=== PATIENT | male | born 1960 | race African-American/Black ===

== ENCOUNTER → 2020-05-30 | Outpatient (CLI) | payer OTHER ==
[~2020-05-30] MED LIST: ATORVASTATIN CA20 MG PO; FISH OIL 1,0001 EAC9 PO; HYDROCHLOROTH12.5 M2 PO; MULTI VITAMIN1 EACH PO; VITAMIN D325 MC3 PO
== END ==
LOC: LAB 09:52
PROVIDERS: ATTEND Orthopaedic Surgery Sports Medicine
DX: Z01.812 Encounter for preprocedural laboratory examination (principal); Z20.828 Contact with and (suspected) exposure to other viral communicable diseases

== ENCOUNTER 2020-06-03 06:07 | Inpatient (IN) | payer OTHER ==
[2020-05-23 09:59] LABS: HEMOGLOBIN 13.6 gm/dL (14.0-18.0); MCH 32.3 pg (26.0-34.0); MCHC 33.1 g/dL (28.0-37.0); MCV 97.6 fL (80.0-100.0); RBC 4.2 mil/uL (4.50-6.00); WBC 4.7 thou/uL (4.0-11.0)
[2020-05-23 10:08] LABS: URINE BILIRUBIN NEGATIVE (Negative); URINE BLOOD NEGATIVE (Negative); URINE CLARITY CLEAR; URINE COLOR YELLOW; URINE GLUCOSE-RANDOM* NEGATIVE (Negative); URINE KETONES NEGATIVE (Negative); URINE LEUKOCYTES-REFLEX NEGATIVE (Negative); URINE NITRITE-REFLEX NEGATIVE (Negative); URINE PROTEIN (DIPSTICK) NEGATIVE (Negative); URINE SPECIFIC GRAVITY 1.025 (1.005-1.035); URINE UROBILINOGEN 0.2 E.U./dl (0.2-1.0)
--- NOTE | 2020-05-23 10:13 | EKG ---
[facility] [place] [address] ELECTROCARDIOGRAM REPORT Name: LIZANDRO HAMEED Room #: PRE [facility]..#: [id number] Admission: Attend Phys: Idris Aguirre MD Discharge: Date of : 58 Report #: [id number] THIS REPORT FOR: cc: JANES CANTU Physician not on staff Meet Diaz MD 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 05/23/20 1013 0948 7 Meet Diaz MD, FACC /EPI
[2020-05-23 10:14] LABS: PROTIME 10.7 Seconds (9.3-11.4)
[2020-05-23 10:18] LABS: ALBUMIN 4.2 g/dL (3.4-5.0); CALCIUM 8.9 mg/dL (8.5-10.1); CREATININE 0.9 mg/dL (0.7-1.3)
[~2020-06-03] VITALS: Ht 182.9 cm; Wt 115.7 kg
[2020-06-03 07:29] VITALS: BP 123/84
[2020-06-03 13:25] VITALS: BP 138/90
[2020-06-03 13:55] VITALS: BP 145/92
[2020-06-03 14:30] VITALS: BP 150/89
[2020-06-03 19:07] VITALS: BP 117/80
--- NOTE | 2020-06-03 20:30 | NUR ---
PATIENT ADMITTED FROM OR WITH RIGHT KNEE REPLACEMENT, BROIDE DRESSING, SCD'S, JOSUÉ NÚÑEZ, POLAR CARE IN PLACE. PATIENT DENIES PAIN DURING ADMISSION. RIGHT WRIST IV IN PLACE. NO C/O NAUSEA, REGULAR DIET ORDERED. AT BEDSIDE. REPORT GIVEN TO LUZMA/RN.
--- NOTE | 2020-06-04 05:26 | NUR ---
ASSESSED AT START OF SHIFT. PT A&OX4 RATES PAIN OF 2/10. MANAGED BY PO OXYCODONE. IV INTACT AND FLUIDS INFUSING. BRODIE DRESSING POLAR PACK AND SCD'S ON BLE. URINAL AT BEDSIDE AND PT VOIDS APPROPRIATELY. STATED NUMBNESS IN RT LEG. FALL PREC IN PLACE AND CALL LIGHT AT REACH WILL CONT TO MONITOR.
[2020-06-04 05:59] VITALS: BP 124/85
[2020-06-04 05:59] LABS: HEMOGLOBIN 10.5 gm/dL (14.0-18.0); MCV 97.1 fL (80.0-100.0); RBC 3.19 mil/uL (4.50-6.00); RDW 13.1 % (10.5-14.5); WBC 8.5 thou/uL (4.0-11.0)
--- NOTE | 2020-06-04 06:36 | O ---
[address] [address] OPERATIVE REPORT Name: LIZANDRO HAMEED Room #: 446-P ADM IN M.R.#: [id number] Admission: 06/03/20 Attend Phys: Idris Aguirre MD Discharge: Date of : 58 Report #: [id number] THIS REPORT FOR: cc: RODRIGUEZ - Family physician unknown FAM - Family physician unknown Idris Aguirre MD ~ CC: RODRIGUEZ unknown Idris Aguirre DATE OF SERVICE: 06/03/2020 SERVICE: Orthopedics. FACILITY: [facility]. SURGEON: Idris Aguirre MD SAFE AND VAULT INSTALLER: Tamanna Terry. INDICATION FOR SAFE AND VAULT INSTALLER: Assistance with the exposure, retraction during the procedure as well as the closure. PREOPERATIVE DIAGNOSES: 1. Right knee pain. 2. Right knee valgus type osteoarthritis. POSTOPERATIVE DIAGNOSES: 1. Right knee pain. 2. Right knee valgus type osteoarthritis. PROCEDURES: 1. Right total knee arthroplasty. 2. Computer navigated robotic-assisted arthroplasty. COMPLICATIONS: None. DRAINS: None. SPECIMENS: None. ANESTHESIA: General with regional. FINDINGS: 1. [employer] Oxinium size 7 Journey II femoral component with size 7 tibial baseplate, a size 12 constrained liner and 35 mm patellar button. 2. Correction of the preoperative 7-degree valgus, 5-degree hyperextension [address] [address] OPERATIVE REPORT Name: LIZANDRO HAMEED Room #: 446-P [facility] [place]#: [id number] Admission: 06/03/20 Attend Phys: Idris Aguirre MD Discharge: Date of : 58 Report #: [id number] deformity that this knee had. HISTORY: The patient is a gentleman with a history of persistent progressive right knee arthritis. He was [id number] arthritis on x-rays with osteophytes, sclerosis and subchondral cyst. He had failed conservative measures including rest, activity modifications, physical therapy, oral medicines and injections. He had activity of daily life-limiting symptoms and wished to move forward with definitive surgical treatment. Risks, benefits, alternatives, and indication of surgery discussed with him in detail. Risks include but not limited to pain, bleeding, infection, injury to nerves or blood vessels, persistent pain despite surgical intervention, failure of the reconstruction as well as need for further surgery including stiffness as well as complications related to anesthesia such as stroke, heart attack, pulmonary complications, thromboembolic disease and . Despite these risks, he wished to proceed. PROCEDURE IN DETAIL: After right lower extremity was correctly identified in preoperative holding area as the operative extremity, the patient underwent regional nerve block. He was then taken to the operating room where general anesthesia was induced without complications and was padded appropriately. Prophylactic antibiotics were administered at appropriate time. Tourniquet was applied to right leg. He had an obvious hyperextension deformity with a valgus deformity as well. The right leg was prepped and draped in standard sterile fashion. Timeout procedure performed. Esmarch was used. Tourniquet inflated to 300 mmHg and a standard anterior approach with medial parapatellar arthrotomy was performed. There was noted to be severe arthritis, tricompartmentally worst laterally. He has significant valgus deformity, we consider this in the pre-resection templating. The checkpoints were placed as were the femoral and tibial half pins in standard fashion and then the [employer] robotic system was used to obtain the baseline data. As stated, we considered the deformity in the attempt at correction of the flexion gap as well as the osseous deformity. We set the initial parameters and then made the cut with the robotic assistance and then used a size 7 block for the femoral cuts. Excess osteophytes had been removed. The cruciates were removed. The menisci were removed and limited medial soft tissue release was performed just to obtain access to the osteophytes without detaching the medial constraints. After the femoral cut was completed, the tibial cut was made in the standard fashion and then assessed gap balancing. He was still significantly tight laterally, so I did a limited capsular release laterally and partial release of the popliteus, which allowed for better balancing of the lateral side, both in flexion and extension. The initial periarticular injection cocktail was then injected in the posterior soft tissues and then we proceeded with preparation of the tibia and femur with the spinner box and the tibial punch. We used the shopkick balancing system with both the trial and the final implant before selecting the final poly insert. Because of the valgus deformity and hyperextension, he had a mixed laxity picture in terms [address] [address] OPERATIVE REPORT Name: LIZANDRO HAMEED Room #: 446-P [facility] IN M.R.#: [id number] Admission: 06/03/20 Attend Phys: Idris Aguirre MD Discharge: Date of : 58 Report #: [id number] of increased laxity medially, but has significant tightness posterolaterally even with resection of the posterior osteophytes and soft tissue releases. Ultimately, the 12 constrained fit well and addressed his initial gap asymmetry. The trials were removed. The drill pin was used to create small drill holes within the sclerotic bone of the lateral side of the knee. The knee was copiously irrigated. Again, the final capsular injection was performed and then the final implants were cemented into place. The knee was held in extension and excess cement was removed while the cement cured, the tourniquet was let down. Hemostasis was achieved. We again used the Navio system to assess balancing with the trial poly and ultimately selected a 12 constrained which was then snapped into place. The knee was well balanced and stable at this point. The wound was copiously irrigated. The arthrotomy was closed over a gram of vancomycin powder with #2 Vicryl suture. The skin layer was then closed with 2-0 Vicryl followed by subcuticular running Monocryl suture. Dermabond and then a sterile dressing with a compression stocking and a PolarCare were applied to the right lower extremity. The patient was awakened from anesthesia and taken to recovery room in stable condition. No complications. All counts were reported as correct. <ELECTRONICALLY SIGNED> By: Idris Aguirre MD 06/04/20 0636 1353 1430 Idris Aguirre MD /nt
[2020-06-04 07:00] VITALS: BP 119/81
--- NOTE | 2020-06-04 09:18 | NUR ---
ASSESSMENT: CM REVIEWED CHART AND SPOKE WITH PT. PT IS ALERT AND ORIENTED X4. PT IS S/P RIGHT TKA. PT REPORTS LIVING IN A HOUSE WITH HIS . PT REPORTS ABOUT 5 STEPS WITH HANDRAILS INTO THE HOME. PT REPORTS ONCE INSIDE HE HAS ABOUT 16 STEPS WITH HANDRAILS TO HIS BEDROOM. PT REPORTS NORMALLY BEING FULLY INDEPENDENT WITH ADLS AND AMBULATION. PT DENIES HAVING ANY DME. CM DISCUSSED PT WILL LIKELY NEED A WALKER AT DISCHARGE. PT REPORTS HE HAS NO PREFERENCE OF DME COMPANY. CM REACHED OUT TO PROVIDER [employer] TO CHECK PATIENTS INSURANCE AND [employer] VERIFIED THAT HE CAN BE ISSUED A WALKER. CM NOTIFIED PHYSICAL THERAPY THAT PT CAN BE ISSUED WALKER THEY WILL BE ABLE TO GIVE PT ONE FROM THE OFFICE. PT REPORTS HAVING OUTPATIENT THERAPY ALREADY ARRANGED AT [facility] (P)[phone] FAX:[phone]. CM WILL CONTINUE TO FOLLOW TO ASSIST NEEDED. PT WILL DISCHARGE ONCE CLEARED BY PT/OT.
--- NOTE | 2020-06-04 11:03 | NUR ---
PT CARE ASSUMED AT 0700. A&Ox4. BRODIE DRESSING DRY AND INTACT. EDUCATED ON BRODIE AND POLAR PACK. SCD'S/TEDS IN PLACE. VITALS STABLE. PT STILL STRUGGLING WITH PAIN MANAGMENT. EDUCATED ON CALLING OUT FOR MEDICATION SOONER. PT UNDERSTANDS. IV PATENT WITH NO REDNESS OR EDEMA, SALINE LOCKED. 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 FALL PROTOCOL IN PLACE. CALL LIGHT IN REACH. PT POSSIBLY DISCHARGING TOMORROW IF PAIN UNDER BETTER CONTROL. PT/OT ON BOARD. USES URINAL. CARE HANDED OVER AT 1100 TO LYNDSEY DE JESUS.
[2020-06-04 15:01] VITALS: BP 133/84
--- NOTE | 2020-06-04 17:17 | NUR ---
ASSUMED PT CARE DURING DAY SHIFT FROM [facility]. PT A&OX4, VSS. COMPLAINED OF PAIN MANAGED WITH MEDS PER EMAR. PT UP WITH PHYSICAL THERAPY, COOPERATIVE WITH STAFF, AND CALLS APPROPRIATELY WHEN NEEDED. NO ISSUES NOTED WITH BRODIE DRESSING OR POLAR PACK.
[2020-06-04 19:12] VITALS: BP 152/82
--- NOTE | 2020-06-05 01:14 | NUR ---
ASSUMED PT CARE AT SHIFT CHANGE. PT IS A&OX4. IV WAS INFILTRATED SO I REMOVED IT. PT STATES THAT THE IV WAS LEAKING ALL DAY. BRODIE DRESSING AND POLAR PACK IS IN PLACE. SCD'S AND JOSUÉ HOSE ARE IN PLACE ON BLE. PT CALLS OUT TO NOTIFY STAFF OF NEED OF PAIN MEDS. PAIN MANAGED BY PAIN MEDICATION. PT USES URINAL AND HAS NOT HAD A BM TODAY YET. HOURLY ROUNDS COMPLETED. WILL CONTINUE TO MONITOR.
[2020-06-05 04:44] VITALS: BP 151/94
[2020-06-05 05:53] LABS: HEMATOCRIT 30.1 % (42.0-52.0); HEMOGLOBIN 10.1 gm/dL (14.0-18.0); MCH 32.6 pg (26.0-34.0); MCHC 33.4 g/dL (28.0-37.0); MCV 97.6 fL (80.0-100.0); RBC 3.09 mil/uL (4.50-6.00); RDW 12.7 % (10.5-14.5); WBC 7.4 thou/uL (4.0-11.0)
--- NOTE | 2020-06-05 06:38 | NUR ---
I AGREE ON THE DOCUMENTATION DONE BY Damion CHANG LPN ON THIS PATIENT.
[2020-06-05 07:42] VITALS: BP 156/96
[2020-06-05] MEDS ORDERED: PERCOCET 10-321 EACH PO (10:43)
[2020-06-05 12:36] VITALS: BP 156/96
--- NOTE | 2020-06-05 13:06 | NUR ---
ASSUMED CARE AT 0700. PATIENT IS ALERT AND ORIENTED X4. PATIENT HAS LEFT FACIAL PALSEY /DROOP. THIS IS NOT RELATED TO A STROKE. LUNGS ARE CLEAR. ABD IS SOFT WITH BSX4. PATIENT IS VOIDING JAYME COLORED URINE. UP WITH WALKER TO AMBULATE WITH P.T. OK TO BE D/C'D TO HOME. PLAN D/C AFTER FILLS SCRIPS. PATIENT HAS POLAR ICE TO HIS RIGHT KNEE. PICCO DRESSING IS INTACT. FALL AND SAFETY PROTOCOLS IN PLACE. C/O PAIN IN HIS RIGHT KNEE. MEDICATED WITH PRN PAIN MEDS. CONTINUES TO PROGRESS TOWARDS D/C GOALS.
--- NOTE | 2020-06-05 13:34 | NUR ---
PATIENT GIVEN D/C INSTRUCTIONS AND SCRIPTS GIVEN TO . PATIENT LEFT UNIT IN W/C IN GOOD CONDITION AND ALL OF HIS BELONGINGS. POLAR ICE MACHINE SENT WITH PATIENT. PATIENT WAS SBA WITH WALKER WITH TRANSFER FROM W/C TO PATIENTS CAR.
== END 2020-06-05 12:45 | disposition home or self-care (01) | DRG 470 ==
LOC: OR → TBA 06:07 → OR 06:07 → 4S 13:28 → OR 13:29 → 4S 06-05 12:45
PROVIDERS: ADMIT Orthopaedic Surgery Sports Medicine; ATTEND Orthopaedic Surgery Sports Medicine
PROC: 0SRC069 Replacement of Right Knee Joint with Oxidized Zirconium on Polyethylene Synthetic Substitute, Cemented, Open Approach (ICD-10-PCS; principal; 2020-06-03)
PROC: 8E0YXBZ Computer Assisted Procedure of Lower Extremity (ICD-10-PCS; principal; 2020-06-03)
PROC: 8E0Y0CZ Robotic Assisted Procedure of Lower Extremity, Open Approach (ICD-10-PCS; principal; 2020-06-03)
DX: M17.11 Unilateral primary osteoarthritis, right knee (principal); M21.061 Valgus deformity, not elsewhere classified, right knee; I10 Essential (primary) hypertension; E78.5 Hyperlipidemia, unspecified
CPT/HCPCS: 10102; 50010; 50101; 50415; 50954; 51130; 51225; 51320; 53000; 53078; 53365; 54118; 56527; 56528; 57095; 57103; 57110; 57127; 57181; 62110; 62900; 64039; 70005